=== PATIENT | male | born 1960 ===

== ENCOUNTER 2022-10-28 14:45 | Oncology outpatient (recurring) (ONCR) | payer MEDICARE, BC, SELFPAY | END 2022-11-18 23:59 | disposition home or self-care (01) | PROVIDERS: PCP Internal Medicine; Visit Provider Internal Medicine Medical Oncology | DX: D50.8 Other iron deficiency anemias (principal) | CPT/HCPCS: 99204 ==

== ENCOUNTER 2022-12-19 14:40 | Oncology outpatient (recurring) (ONCR) | payer MEDICARE, BC, SELFPAY ==
[2022-12-19 15:39] LABS: Basophils % 0.7 %; Eosinophils # 0.1 10^3/uL (0.0-0.8); Eosinophils % 2.2 %; Hematocrit 31.7 % (37-53); Lymphocytes # 1.1 10^3/uL (0.8-4.8); Lymphocytes % 25.9 %; Mean Corpuscular HGB Conc 32.5 g/dL (30-55); Mean Corpuscular Hemoglobin 28.1 pg (27-33); Mean Corpuscular Volume 86.6 fl (82-101); Mean Platelet Volume 9.2 fL (7.4-10.4); Monocytes # 0.2 10^3/uL (0.2-0.9); Monocytes % 5.1 %; Neutrophils # 2.72 10^3/uL (1.8-7.7); Neutrophils % 65.9 %; Nucleated Red Blood Cells % 0 %; Platelet Count 75 10^3/cmm (157-399); Red Blood Count 3.66 10^6/uL (3.85-5.65); White Blood Count 4.13 10^3/uL (3.29-11.43)
== END 2022-12-19 23:59 | disposition home or self-care (01) ==
PROVIDERS: Internal Medicine Medical Oncology; PCP Internal Medicine; Visit Provider Internal Medicine Medical Oncology
DX: Z79.899 Other long term (current) drug therapy (principal); I10 Essential (primary) hypertension; F17.210 Nicotine dependence, cigarettes, uncomplicated; D50.8 Other iron deficiency anemias
CPT/HCPCS: 36415; 85025; 99213

== ENCOUNTER 2024-02-06 07:29 | Oncology outpatient (recurring) (ONCR) | payer MEDICARE, BC, SELFPAY ==
[2024-02-06] VITALS (9 sets, daily range): BP systolic 121–144; BP diastolic 64–72; PULSE 63–70; RESP 16; TEMP 36.7–37.1; O2SAT 98–100
[2024-02-06] MEDS: acetaminophen 500 mg Tablet 1000 MG PO (08:32)
[2024-02-06] MEDS: diphenhydrAMINE 25 mg Capsule PO (08:32)
[2024-02-06] MEDS: sodium chloride 0.9% 250 mL Bag IV (08:33)
[2024-02-06 09:22] LABS: Hematocrit 16.9 % (37-53)
== END 2024-02-19 23:59 | disposition home or self-care (01) ==
PROVIDERS: PCP Internal Medicine; Visit Provider Family Medicine
DX: D64.9 Anemia, unspecified (principal); Z79.899 Other long term (current) drug therapy
CPT/HCPCS: 36430; 85014; 85018; 86850; 86900; 86920; J7050; P9016; P9040

== ENCOUNTER → 2025-03-30 10:09 | Outpatient (BNVA) | payer MEDICARE, BC, SELFPAY | PROVIDERS: PCP Internal Medicine; Referring Provider Family Medicine; Visit Provider Internal Medicine Rheumatology | DX: M45.9 Ankylosing spondylitis of unspecified sites in spine (principal); Z79.899 Other long term (current) drug therapy; Z71.85 Encounter for immunization safety counseling; K74.00 Hepatic fibrosis, unspecified; D61.818 Other pancytopenia; M46.1 Sacroiliitis, not elsewhere classified; M47.896 Other spondylosis, lumbar region | CPT/HCPCS: 36415; 72100; 72202; 80076; 82565; 85025; 85651; 86140; 86480; 86704; 86803; 86812; 87340; 99205 ==